=== PATIENT | male | born 1985 | race Hispanic/Latino ===

== ENCOUNTER 2022-07-30 17:49 | Emergency (ER) | payer OTHER, SELFPAY | END 2022-07-30 19:57 | disposition home or self-care (01) | LOC: CSHERS 17:49 | DX: S06.0X0A Concussion without loss of consciousness, initial encounter (principal); V49.40XA Driver injured in collision with unspecified motor vehicles in traffic accident, initial encounter | CPT/HCPCS: 70450 ==